=== PATIENT | female | born 1975 | race Hispanic/Latino ===

== ENCOUNTER 2016-09-23 09:18 | Emergency (ER) | payer OTHER ==
[2016-09-23 09:23] VITALS: BMI 20.5
[2016-09-23] MEDS ORDERED: Rabies Vaccine 2.5 U VIAL IM ONE (10:01)
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
[2016-09-23 12:06] VITALS: BP 118/70; PULSE 71; RESP 18; TEMP 98; O2SAT 99
== END 2016-09-23 12:09 | disposition home or self-care (01) ==
LOC: ED 09:18
DX: F07.81 Postconcussional syndrome (principal); J32.9 Chronic sinusitis, unspecified; V49.9XXA Car occupant (driver) (passenger) injured in unspecified traffic accident, initial encounter

== ENCOUNTER 2017-07-12 11:26 | Day surgery (SDC) | payer BC ==
[2017-07-12 12:25] LABS: EOS % 0.8 % (1.5-5.0); GRAN # 3.61 (1.4-6.5); GRAN % 70.1 % (50.0-68.0); HEMOGLOBIN 13.7 g/dL (12.0-16.0); LYMPH # 1.2 (1.2-3.4); LYMPH % 23.5 % (22.0-35.0); MEAN CELL VOLUME 103.3 fl (80.0-105.0); MEAN CORPUSCULAR HEMOGLOBIN 34.5 pg (25.0-35.0); MEAN CORPUSCULAR HGB CONC 33.4 g/dl (31.0-37.0); MEAN PLATELET VOLUME 9.9 fl (7.0-11.0); MONO # 0.3 (0.1-0.6); MONO % 5.6 % (1.0-6.0); RBC 3.97 10^6/uL (3.5-6.1); RED CELL DISTRIBUTION WIDTH 15.6 % (11.5-14.5); WHITE BLOOD COUNT 5.2 10^3/ul (4.5-11.0)
[2017-07-12 12:35] LABS: ALB/GLOB RATIO 1.5 (1.1-1.8); ALBUMIN 4.8 g/dL (3.0-4.8); ALT/SGPT 23 U/L (7-56); AMYLASE 71 U/L (35-125); AST/SGOT 30 U/L (14-36); BLOOD UREA NITROGEN 14 mg/dL (7-21); GAMMA GLUTAMYL TRANSPEPTIDASE 24 U/L (8-78); GFR AFRICAN-AMERICAN > 60; GFR NON-AFRICAN AMERICAN > 60; LIPASE 145 U/L (23-300)
[2017-07-12 12:42] LABS: INR 0.96 (0.93-1.08); PARTIAL THROMBOPLASTIN TIME 29.9 Seconds (25.1-36.5)
[2017-07-12] MEDS ORDERED: Propofol 10 mg/ml Inj (20 ML) ONE (16:10)
[2017-07-12] MEDS ORDERED: Midazolam 2 MG/2 ML VIAL ONE (16:10)
[2017-07-12] MEDS ORDERED: Lactated Ringer's 1,000 ML IV SCH (16:30)
[2017-07-12 17:40] VITALS: BP 119/76; PULSE 76; RESP 18; TEMP 97.8; O2SAT 100
[2017-07-12] MEDS ORDERED: Potassium Chloride 40 mEq/30 ml LIQ UD PO ONE (17:43)
== END 2017-07-12 18:45 | disposition home or self-care (01) ==
LOC: ENDO 11:26
PROVIDERS: ATTEND Internal Medicine Gastroenterology
DX: K21.0 Gastro-esophageal reflux disease with esophagitis (principal); K29.50 Unspecified chronic gastritis without bleeding
CPT/HCPCS: 36415; 43239; 80053; 82150; 82977; 83690; 83735; 84703; 85025; 85610; 85730; 88305; 88312; 88342; J2001; J2250; J2704; J3010; J3480; J7120

== ENCOUNTER 2018-05-19 16:35 | Emergency (ER) | payer BC ==
[2018-05-19 16:35] VITALS: BMI 20.5
--- NOTE | 2018-05-19 17:01 | ED PDOC ---
Arrival/HPI - General Chief Complaint: Seizure Time Seen by Provider: 05/19/18 16:49 Historian: Patient, Spouse () - History of Present Illness Narrative History of Present Illness (Text): 05/19/18 17:00 A 42 year old female with no significant past medical history, presents to the emergency department s/p seizure from earlier today. Patient's reports after patient eating she went to her bed and laid down from general weakness and her son witnessed the patient shaking with blood coming from her mouth. Per , learning manager stated patient may have bit her lip during the seizure causing her mouth to bleed. Patient admits to taking one Advil today. Patient denies any fever, chills, shortness of breath, chest pain, diarrhea, nausea, vomiting, urinary symptoms, back pain, neck pain, headache, dizziness, or any other complaints. PMD: Dr. Aguila Time/Duration: Other (2 days) Symptom Onset: Gradual Symptom Course: Unchanged Activities at Onset: Light Context: Home Past Medical History - Provider Review Nursing Documentation Reviewed: Yes - Infectious Disease Hx of Infectious Diseases: None - Tetanus Immunization Tetanus Immunization: Unknown - Reproductive Menopause: No - Past Medical History Past Medical History: No Previous - Cardiac Hx Pacemaker: No - Neurological Hx Paralysis: No - Hematological/Oncological Hx Blood Transfusions: No Hx Blood Transfusion Reaction: No - Integumentary Hx Dermatological Disorder: No - Musculoskeletal/Rheumatological Hx Musculoskeletal Disorders: No - Psychiatric Hx Emotional Abuse: No Hx Physical Abuse: No Hx Substance Use: No - Past Surgical History Past Surgical History: No Previous - Anesthesia Hx Anesthesia Reactions: No Hx Malignant Hyperthermia: No - Suicidal Assessment Feels Threatened In Home Enviroment: No Family/Social History - Physician Review Nursing Documentation Reviewed: Yes Family/Social History: No Known Family HX Smoking Status: Never Smoked Hx Alcohol Use: (SOCIALLY) Hx Substance Use: No Allergies/Home Meds Allergies/Adverse Reactions: Allergies Penicillins Allergy (Verified 09/23/16 09:24) ANAPHYLAXIS Home Medications: Home Meds Medication Instructions Recorded Confirmed RX: No Known Home Med 05/19/18 05/19/18 Review of Systems - Physician Review All systems were reviewed & negative as marked: Yes - Review of Systems Constitutional: absent: Fevers, Night Sweats Respiratory: absent: SOB Cardiovascular: absent: Chest Pain Gastrointestinal: absent: Diarrhea, Nausea, Vomiting Genitourinary Female: absent: Urine Output Changes Musculoskeletal: absent: Back Pain, Neck Pain Neurological: Seizure. absent: Headache, Dizziness Physical Exam - Physical Exam Narrative Physical Exam (Text): 05/19/18 17:06 Gen: VS reviewed, alert, well developed, well nourished, nontoxic, mild distress. ENT: normal pharynx. No sinus tenderness. Face: superficial laceration to the mucosal aspect of lower lip, no active bleeding. Eye: EOMI, PERRL. No nystagmus. No photophobia. Neck: no JVD, supple, no adenopathy. CV: regular rate, regular rhythm, no rubs, no murmur, no gallops, S1, S2, pulses equal and strong. Pulm: no distress, clear to auscultation, no wheeze, no rhonchi, breath sounds equal, no rales. Abd: soft, nontender, no guarding, no rebound, no rigidity, normal bowel sounds. Ext: no edema. Skin: good color, no rash, no cyanosis. Psych: responds appropriately to questions, normal affect. Neuro: oriented x 3, CN2-12 intact grossly, motor intact, sensation intact. mildly tremulous in the hands. Vital Signs Reviewed: Yes Vital Signs Temp Pulse Resp BP Pulse Ox 05/19/18 16:38 99.3 F 99 H 18 117/83 100 Temperature: Afebrile Blood Pressure: Normal Pulse: Tachycardic Respiratory Rate: Normal Medical Decision Making ED Course and Treatment: 05/19/18 17:10 Impression: A 42 year old female presents to the emergency department s/p seizure. Plan: -- Head CT without contrast -- Head CT with contrast -- Labs -- CBC -- IV fluids -- Reassess and disposition Prior Visits: Notes and results from previous visits were reviewed. Progress Notes: 05/19/18 18:20 further hx reveals that the patient is a heavy everyday drinker. last drink was yesterday. 05/19/18 19:[address] lee to the hospitalist service. patient to be admitted for alcohol withdrawal. patient is an everyday drinker (admitted) and last drink was yesterday. patient remained stable throughout Emergency department course, electrolytes repleted, CIWA approx 2. - RAD Interpretation Narrative RAD Interpretations (Text): 05/19/18 19:38 Procedure:CT Head without Intravenous Contrast. Time: May 19, 2018 7:31:32 PM Dictator: Dr. Qasim Coronel M.D. Impression: No acute intracranial abnormality. Stuntman: Radiologist - EKG Interpretation EKG Interpretation (Text): 05/19/18 19:06 1648: nsr at 86 bpm, nml qrs, nml axis, no acute sttw abn Interpreted by ED Physician: Yes - Scribe Statement The provider has reviewed the documentation as recorded by the Scribtay Pritchard All medical record entries made by the Scribe were at my direction and personally dictated by me. I have reviewed the chart and agree that the record accurately reflects my personal performance of the history, physical exam, medical decision making, and the department course for this patient. I have also personally directed, reviewed, and agree with the discharge instructions and disposition. Disposition/Present on Arrival - Present on Arrival Any Indicators Present on Arrival: No History of DVT/PE: No History of Uncontrolled Diabetes: No Urinary Catheter: No History of Decub. Ulcer: No History Surgical Site Infection Following: None - Disposition Have Diagnosis and Disposition been Completed?: Yes Diagnosis: Alcohol withdrawal, Hypomagnesemia, Thrombocytopenia Disposition: HOSPITALIZED Disposition Time: 19:34 Patient Plan: Admission Patient Problems: Current Active Problems Problem Status Onset Alcohol withdrawal Acute Condition: FAIR
[2018-05-19 17:07] VITALS: RESP 18
[2018-05-19] MEDS ORDERED: Sodium Chloride 0.9% 1,000 ML IV SCH (17:15)
[2018-05-19 17:17] LABS: BASO # 0.01 K/mm3 (0.0-2.0); BASO % 0.1 % (0.0-3.0); EOS % 0.3 % (1.5-5.0); GRAN # 5.19 (1.4-6.5); GRAN % 69.5 % (50.0-68.0); HEMOGLOBIN 12.1 g/dL (12.0-16.0); LYMPH # 1.5 (1.2-3.4); LYMPH % 20.6 % (22.0-35.0); MEAN CELL VOLUME 100.6 fl (80.0-105.0); MEAN CORPUSCULAR HEMOGLOBIN 34.5 pg (25.0-35.0); MEAN CORPUSCULAR HGB CONC 34.3 g/dl (31.0-37.0); MEAN PLATELET VOLUME 10.3 fl (7.0-11.0); MONO # 0.7 (0.1-0.6); MONO % 9.5 % (1.0-6.0); RBC 3.51 10^6/uL (3.5-6.1); RED CELL DISTRIBUTION WIDTH 16.6 % (11.5-14.5); WHITE BLOOD COUNT 7.5 10^3/uL (4.5-11.0)
[2018-05-19 17:48] LABS: ALB/GLOB RATIO 1.6 (1.1-1.8); ALBUMIN 4.3 g/dL (3.0-4.8); ALT/SGPT 25 U/L (7-56); AST/SGOT 77 U/L (14-36); BLOOD UREA NITROGEN 7 mg/dL (7-21); GFR NON-AFRICAN AMERICAN > 60
[2018-05-19] MEDS ORDERED: Magnesium Sulfate 2 gm/50 ml 2 GM/50 ML BAG IVPB ONE (18:12)
[2018-05-19] MEDS ORDERED: Multivitamin (MVI) 10 ML, Thiamine 100 MG, Folic Acid 1 MG in Sodium Chloride 0.9% 1,00... IV ONE (18:46)
[2018-05-19] MEDS ORDERED: Potassium Chloride 20 mEq ER Tab PO STA (18:46)
[2018-05-19 19:02] LABS: BARBITURATES, UR NEGATIVE (NEGATIVE); BENZODIAZEPINES, UR NEGATIVE (NEGATIVE); OPIATES, UR NEGATIVE (NEGATIVE); PHENCYCLIDINE, UR NEGATIVE (NEGATIVE)
[2018-05-19 20:10] VITALS: BP 131/89; PULSE 89; TEMP 98.2; O2SAT 98
--- NOTE | 2018-05-19 23:30 | ED PDOC ---
ED Additional Note - Date & Time of Evaluation Date of Evaluation: 05/19/18 Time of Evaluation: 23:28 - Physician Additional Note Physician Additional Note: Went to see patient at bed # 7 in the ER. Found out that patient has signed out AMA. Earlier paramedical aide Renae as well as Dr.Mitchell Cowart of ER had discussed with me about this patient.
--- NOTE | 2018-05-20 05:58 | CP.PCM.DIS ---
Hospital Course - Lab Results Lab Results: Most Recent Lab Values WBC 7.5 10^3/uL (4.5-11.0) 05/19/18 17:02 RBC 3.51 10^6/uL (3.5-6.1) 05/19/18 17:02 Hgb 12.1 g/dL (12.0-16.0) 05/19/18 17:02 Hct 35.3 % (36.0-48.0) L 05/19/18 17:02 MCV 100.6 fl (80.0-105.0) 05/19/18 17:02 MCH 34.5 pg (25.0-35.0) 05/19/18 17:02 MCHC 34.3 g/dl (31.0-37.0) 05/19/18 17:02 RDW 16.6 % (11.5-14.5) H 05/19/18 17:02 Plt Count 54 10^3/uL (120.0-450.0) L 05/19/18 17:02 MPV 10.3 fl (7.0-11.0) 05/19/18 17:02 Gran % 69.5 % (50.0-68.0) H 05/19/18 17:02 Lymph % (Auto) 20.6 % (22.0-35.0) L 05/19/18 17:02 [place] % (Auto) 9.5 % (1.0-6.0) H 05/19/18 17:02 Eos % (Auto) 0.3 % (1.5-5.0) L 05/19/18 17:02 Baso % (Auto) 0.1 % (0.0-3.0) 05/19/18 17:02 Gran # 5.19 (1.4-6.5) 05/19/18 17:02 Lymph # (Auto) 1.5 (1.2-3.4) 05/19/18 17:02 [place] # (Auto) 0.7 (0.1-0.6) H 05/19/18 17:02 Eos # (Auto) 0.0 (0.0-0.7) 05/19/18 17:02 Baso # (Auto) 0.01 K/mm3 (0.0-2.0) 05/19/18 17:02 Sodium 135 mmol/L (132-148) 05/19/18 17:20 Potassium 3.2 mmol/L (3.6-5.0) L 05/19/18 17:20 Chloride 96 mmol/L (98-107) L 05/19/18 17:20 Carbon Dioxide 24 mmol/L (21-33) 05/19/18 17:20 Anion Gap 18 (10-20) 05/19/18 17:20 BUN 7 mg/dL (7-21) 05/19/18 17:20 Creatinine 0.5 mg/dl (0.7-1.2) L 05/19/18 17:20 Est GFR ( Amer) > 60 05/19/18 17:20 Est GFR (Non-Af Amer) > 60 05/19/18 17:20 POC Glucose (mg/dL) 174 mg/dL (65-110) H 05/19/18 16:51 Random Glucose 174 mg/dL (70-110) H 05/19/18 17:20 Calcium 9.0 mg/dL (8.4-10.5) 05/19/18 17:20 Magnesium 1.3 mg/dL (1.7-2.2) L 05/19/18 17:20 Total Bilirubin 2.5 mg/dL (0.2-1.3) H 05/19/18 17:20 AST 77 U/L (14-36) H D 05/19/18 17:20 ALT 25 U/L (7-56) 05/19/18 17:20 Alkaline Phosphatase 95 U/L (38-126) 05/19/18 17:20 Total Protein 7.0 g/dL (5.8-8.3) 05/19/18 17:20 Albumin 4.3 g/dL (3.0-4.8) 05/19/18 17:20 Globulin 2.7 gm/dL 05/19/18 17:20 Albumin/Globulin Ratio 1.6 (1.1-1.8) 05/19/18 17:20 TSH 3rd Generation 1.92 mIU/mL (0.46-4.68) 05/19/18 17:20 Urine Opiates Screen Negative (NEGATIVE) 05/19/18 18:13 Urine Methadone Screen Negative (NEGATIVE) 05/19/18 18:13 Ur Barbiturates Screen Negative (NEGATIVE) 05/19/18 18:13 Ur Phencyclidine Scrn Negative (NEGATIVE) 05/19/18 18:13 Ur Amphetamines Screen Negative (NEGATIVE) 05/19/18 18:13 U Benzodiazepines Scrn Negative (NEGATIVE) 05/19/18 18:13 U Oth Cocaine Metabols Negative (NEGATIVE) 05/19/18 18:13 U Cannabinoids Screen Negative (NEGATIVE) 05/19/18 18:13 Alcohol, Quantitative < 10 mg/dL (0-10) 05/19/18 17:20 Discharge Plan - Follow Up Plan Condition: FAIR Disposition: HOSPITALIZED
--- NOTE | 2018-05-20 05:58 | CP.PCM.HP ---
Past Patient History - Infectious Disease Hx of Infectious Diseases: None - Tetanus Immunizations Tetanus Immunization: Unknown - Past Social History Smoking Status: Never Smoked - CARDIAC Hx Pacemaker: No - NEUROLOGICAL Hx Paralysis: No - HEMATOLOGICAL/ONCOLOGICAL Hx Blood Transfusions: No Hx Blood Transfusion Reaction: No - INTEGUMENTARY Hx Dermatological Problems: No - MUSCULOSKELETAL/RHEUMATOLOGICAL Hx Musculoskeletal Disorders: No - PSYCHIATRIC Hx Emotional Abuse: No Hx Physical Abuse: No Hx Substance Use: No - SURGICAL HISTORY Hx Surgeries: Yes (EGD) - ANESTHESIA Hx Anesthesia Reactions: No Hx Malignant Hyperthermia: No Meds Allergies/Adverse Reactions: Allergies Allergy/AdvReac Type Severity Reaction Status Date / Time Penicillins Allergy ANAPHYLAXIS Verified 09/23/16 09:24 Results - Vital Signs Recent Vital Signs: Last Vital Signs Temp 98.2 F 05/19/18 20:09 Pulse 89 05/19/18 20:09 Resp 18 05/19/18 20:09 BP 131/89 05/19/18 20:09 Pulse Ox 98 05/19/18 20:09 - Labs Result Diagrams: 05/19/18 17:02 05/19/18 17:20 Labs: Laboratory Results - last 24 hr 05/19/18 05/19/18 05/19/18 16:51 17:02 17:20 WBC 7.5 RBC 3.51 Hgb 12.1 Hct 35.3 L MCV 100.6 MCH 34.5 MCHC 34.3 RDW 16.6 H Plt Count 54 L MPV 10.3 Gran % 69.5 H Lymph % (Auto) 20.6 L [place] % (Auto) 9.5 H Eos % (Auto) 0.3 L Baso % (Auto) 0.1 Gran # 5.19 Lymph # (Auto) 1.5 [place] # (Auto) 0.7 H Eos # (Auto) 0.0 Baso # (Auto) 0.01 Sodium 135 Potassium 3.2 L Chloride 96 L Carbon Dioxide 24 Anion Gap 18 BUN 7 Creatinine 0.5 L Est GFR ( Amer) > 60 Est GFR (Non-Af Amer) > 60 POC Glucose (mg/dL) 174 H Random Glucose 174 H Calcium 9.0 Magnesium 1.3 L Total Bilirubin 2.5 H AST 77 H D ALT 25 Alkaline Phosphatase 95 Total Protein 7.0 Albumin 4.3 Globulin 2.7 Albumin/Globulin Ratio 1.6 TSH 3rd Generation Urine Opiates Screen Urine Methadone Screen Ur Barbiturates Screen Ur Phencyclidine Scrn Ur Amphetamines Screen U Benzodiazepines Scrn U Oth Cocaine Metabols U Cannabinoids Screen Alcohol, Quantitative 05/19/18 05/19/18 05/19/18 17:20 17:20 18:13 WBC RBC Hgb Hct MCV MCH MCHC RDW Plt Count MPV Gran % Lymph % (Auto) [place] % (Auto) Eos % (Auto) Baso % (Auto) Gran # Lymph # (Auto) [place] # (Auto) Eos # (Auto) Baso # (Auto) Sodium Potassium Chloride Carbon Dioxide Anion Gap BUN Creatinine Est GFR ( Amer) Est GFR (Non-Af Amer) POC Glucose (mg/dL) Random Glucose Calcium Magnesium Total Bilirubin AST ALT Alkaline Phosphatase Total Protein Albumin Globulin Albumin/Globulin Ratio TSH 3rd Generation 1.92 Urine Opiates Screen Negative Urine Methadone Screen Negative Ur Barbiturates Screen Negative Ur Phencyclidine Scrn Negative Ur Amphetamines Screen Negative U Benzodiazepines Scrn Negative U Oth Cocaine Metabols Negative U Cannabinoids Screen Negative Alcohol, Quantitative < 10
--- NOTE | 2018-05-20 09:16 | CT ---
Date of service: 05/19/2018 PROCEDURE: CT HEAD WITHOUT CONTRAST. HISTORY: seizure COMPARISON: None available. TECHNIQUE: Axial computed tomography images were obtained through the head/brain without intravenous contrast. Radiation dose: Total exam DLP = 802.83 mGy-cm. This CT exam was performed using one or more of the following dose reduction techniques: Automated exposure control, adjustment of the mA and/or kV according to patient size, and/or use of iterative reconstruction technique. FINDINGS: HEMORRHAGE: No intracranial hemorrhage. BRAIN: No mass effect or edema. No atrophy or chronic microvascular ischemic changes. VENTRICLES: Unremarkable. No hydrocephalus. CALVARIUM: Unremarkable. PARANASAL SINUSES: Unremarkable as visualized. No significant inflammatory changes. MASTOID AIR CELLS: Unremarkable as visualized. No inflammatory changes. OTHER FINDINGS: The report concurs with the preliminary [facility] report IMPRESSION: No acute intracranial abnormality
--- NOTE | 2018-05-20 10:06 | CARD ---
APPROVED REPORT Date of service: 05/19/2018 EKG Measurement Heart [id number] [id number] <Conclusion> Normal sinus rhythm Normal ECG
--- NOTE | 2018-05-20 12:14 | RAD ---
Date of service: 05/19/2018 HISTORY: aspiration COMPARISON: 11/26/2013 FINDINGS: LUNGS: No active pulmonary disease. PLEURA: No significant pleural effusion identified, no pneumothorax apparent. CARDIOVASCULAR: No aortic atherosclerotic calcification present. Normal cardiac size. No pulmonary vascular congestion. OSSEOUS STRUCTURES: No significant abnormalities. VISUALIZED UPPER ABDOMEN: Normal. OTHER FINDINGS: None. IMPRESSION: No active disease.
== END 2018-05-19 20:10 | disposition left against medical advice (07) ==
LOC: ED 16:35 → UNDOADMIN 19:35 → ERH 19:35
DX: F10.239 Alcohol dependence with withdrawal, unspecified (principal); Y90.0 Blood alcohol level of less than 20 mg/100 ml; E83.42 Hypomagnesemia; D69.6 Thrombocytopenia, unspecified
CPT/HCPCS: 70450; 71045; 80053; 82948; 83735; 84443; 85025; 93005; 96361; 96365; 96375; 99285; G0480; J3411; J7030